=== PATIENT | female | born 1955 | race Two or more races ===

== ENCOUNTER 2016-09-23 09:36 | Emergency (ER) | payer BC ==
[~2016-09-23] VITALS: Ht 152.4 cm; Wt 54.9 kg
[2016-09-23 11:38] LABS: BASOPHIL % 0.9 % (0-2); PLATELET COUNT 214 x10^3mcL (130-400); RED CELL DISTRIBUTION WIDTH 13.2 % (11.5-14.5)
[2016-09-23 11:52] LABS: CALCIUM 8.9 mg/dL (8.5-10.1); CARBON DIOXIDE 30.5 mmol/L (21-32); CHLORIDE SERUM 105 mmol/L (98-107); CREATININE SERUM 0.7 mg/dL (0.6-1.0); GFR1 > 60 mL/min; GLUCOSE SERUM 106 mg/dL (74-106); POTASSIUM SERUM 4.2 mmol/L (3.5-5.1); SODIUM SERUM 142 mmol/L (136-145)
[2016-09-23 11:54] LABS: ALBUMIN 3.8 g/dL (3.4-5.0); ALKALINE PHOSPHATASE 88 U/L (46-116); ALT/SGPT 34 U/L (14-59); AST/SGOT 19 U/L (15-37); CHOLESTEROL 154 mg/dL (<200); CHOLESTEROL/HDL RATIO 2.9; HDL CHOLESTEROL 53 mg/dL (40-60); LIPASE 209 IU/L (73-393); TOTAL PROTEIN, SERUM 7.6 g/dL (6.4-8.2); TRIGLYCERIDES 78 mg/dL (<150)
[2016-09-23 12:03] LABS: FREE T4 0.9 ng/dL (0.76-1.46); FREE THYROXINE INDEX 2.5 ug/dL (1.4-4.5); T4(THYROXINE) 7.6 ug/dL (4.7-13.3)
[2016-09-23 12:06] LABS: T3 TOTAL 0.88 ng/mL
[2016-09-23 13:56] VITALS: BP 110/60
== END 2016-09-23 13:56 | disposition home or self-care (01) ==
LOC: ED 09:36
PROVIDERS: Specialist
DX: F41.9 Anxiety disorder, unspecified (principal)
CPT/HCPCS: 83880; 84439; J7030; Q0092